=== PATIENT | female | born 1995 | race African-American/Black ===

== ENCOUNTER 2016-08-02 13:23 | Emergency (ER) | payer MEDICAID ==
[~2016-08-02] VITALS: Ht 157.5 cm; Wt 91.0 kg
[~2016-08-02 13:23] MED LIST: NAPR-576 PO; RANI150T PO; Z.0.BCPILL PO
[2016-08-02 13:25] VITALS: BP 133/63; PULSE 67; RESP 14; TEMP 98.1; O2SAT 98
--- NOTE | 2016-08-02 13:46 | PD ---
HPI Chief Complaint: Injury Time Seen by Provider: 13:37 Travel History International Travel<30 days: No Contact w/Intl Traveler<30days: No Traveled to known affect area: No History of Present Illness HPI 20-year-old female presents for evaluation of lateral right ankle and foot pain. She reports that yesterday evening she jumped up in order to reach the ceiling fan in order to turn on the ceiling fan. She reports that she landed awkwardly, inverting her right ankle. She heard a "pop" and since then she has had pain along the lateral aspect of the right ankle and foot. Pain is aching pain which is constant and worse with movement of the foot or ankle or with attempts at ambulation. She denies any other injuries and she has no other complaints at this time. [facility] Past Medical History Asthma: Yes Diabetes: No Diminished Hearing: No Respiratory: Yes (ASTHMA) Seizures: No ?: Not LMP: 07/25/2016 Menopausal: No Social History Alcohol Use: No Tobacco Use: No (quit one year ago) Substance Use: No (PER PATIENT) Allergies-Medications (Allergen,Severity, Reaction): Coded Allergies: No Known Allergies (Unverified , 08/02/16) Reported Meds & Prescriptions Reported Meds & Active Scripts Active No Active Prescriptions or Reported Medications Review of Systems Musculoskeletal: Positive: Limited ROM, Pain Skin: Positive Other (no open wounds) Physical Exam Narrative GENERAL: Well-developed well-nourished female in no acute distress SKIN: Warm and dry. CARDIOVASCULAR: Regular rate and rhythm. No murmur appreciated. RESPIRATORY: No accessory muscle use. Clear to auscultation. Breath sounds equal bilaterally. MUSCULOSKELETAL: No obvious deformities. There is some tenderness to palpation around the right ankle lateral malleolus. There is also some tenderness to palpation along the lateral aspect of the right foot. There is no obvious deformity. The patient has discomfort with dorsi and plantar flexion of the right ankle. The Achilles tendon is intact and nontender. Is no tenderness to palpation medial right ankle, calf. 2+ dorsalis pedis and posterior tibial pulses. NEUROLOGICAL: Awake and alert. No obvious cranial nerve deficits. Motor grossly within normal limits. Normal speech. Data Data Last Documented VS Vital Signs Date Time Temp Pulse Resp B/P Pulse Ox O2 Delivery O2 Flow Rate FiO2 08/02/16 13:25 98.1 67 14 133/63 98 Orders Ankle, Complete ([id number]) (08/02/16 ) Foot, Complete ([id number]) (08/02/16 ) Ice/Cold Pack (08/02/16 13:43) Crutches (08/02/16 15:09) Splint Or Brace Apply/Monitor (08/02/16 15:09) MDM Medical Decision Making Medical Screen Exam Complete: Yes Emergency Medical Condition: Yes Medical Record Reviewed: Yes Differential Diagnosis Lateral ankle sprain, fibular fracture, fifth metatarsal fracture, contusion, Lisfranc injury Narrative Course 20-year-old female who lateral right foot and ankle pain after inversion mechanism of injury last night. Ankle x-ray and foot x-ray revealed no acute fractures. She appears to have a lateral ankle sprain. She is being discharged with crutches and an Walt wrap. Diagnosis Primary Impression: Right ankle sprain Qualified Code: S93.401A - Sprain of right ankle, unspecified ligament, initial encounter Additional Instructions: Crutches as needed. Gradually return to normal activities. Take Tylenol or Motrin for discomfort. Follow-up with primary care physician in 2 weeks. Return for any emergent medical conditions. Med/Other Pt SpecificInfo: Orthopedic Instructions Scripts No Active Prescriptions or Reported Meds Disposition: 01 DISCHARGE HOME Condition: Stable Mariusz Yun Aug 02, 2016 13:46
--- NOTE | 2016-08-02 14:38 | RADRPT ---
EXAM DATE/TIME: 08/02/2016 14:15 [facility] COMPARISON: No previous studies available for comparison. INDICATIONS : Patient jumped up and landed on right ankle and heard a "pop". Patient complains of right ankle pain and swelling laterally. MEDICAL HISTORY : None. SURGICAL HISTORY : None. ENCOUNTER: Initial ACUITY: 2 days PAIN SCORE: 7/10 LOCATION: Right Ankle FINDINGS: Three view exam was performed of the right ankle. The bony structures are in normal alignment. No e vidence of fracture, dislocation. There is soft tissue swelling. The ankle mortise is intact. No ra diopaque foreign bodies are seen. Bony mineralization is normal. CONCLUSION: No acute fracture. Bernard Jain MD on August 02, 2016 at 14:36 Board Certified Radiologist. This report was verified electronically.
--- NOTE | 2016-08-02 14:39 | RADRPT ---
EXAM DATE/TIME: 08/02/2016 14:20 [facility] COMPARISON: No previous studies available for comparison. INDICATIONS : Patient jumped and landed on right foot and heard a "pop". Complains of right foot pain. MEDICAL HISTORY : None. SURGICAL HISTORY : None. ENCOUNTER: Initial ACUITY: 1 day PAIN SCORE: 7/10 LOCATION: Right Foot. FINDINGS: Three view examination of the right foot demonstrates soft tissue swelling without dislocation or fra cture. The tarsal bones appear intact. The interphalangeal and metatarsophalangeal joints are inta ct. The calcaneus is intact. Bony mineralization is normal. CONCLUSION: Soft tissue swelling. No acute fracture. Bernard Jain MD on August 02, 2016 at 14:37 Board Certified Radiologist. This report was verified electronically.
== END 2016-08-02 15:55 | disposition home or self-care (01) ==
LOC: NEPB 13:23
DX: S93.401A Sprain of unspecified ligament of right ankle, initial encounter (principal); X50.0XXA Overexertion from strenuous movement or load, initial encounter; Y93.89 Activity, other specified; Y92.9 Unspecified place or not applicable
CPT/HCPCS: 73610; 73630; 99283

== ENCOUNTER 2017-06-06 20:08 | Emergency (ER) | payer MEDICAID, OTHER ==
[2017-06-06 20:10] VITALS: BP 128/72; PULSE 91; RESP 16; TEMP 97.1; O2SAT 99
[2017-06-06] MEDS ORDERED: predniSONE 20 MG TAB PO ONE (21:00)
[2017-06-06] MEDS ORDERED: PRED-503 PO (21:01)
[2017-06-06] MEDS ORDERED: ALBU6.7H INH (21:01)
--- NOTE | 2017-06-06 21:11 | PD ---
HPI Chief Complaint: Respiratory Symptoms Time Seen by Provider: 20:51 Travel History International Travel<30 days: No Contact w/Intl Traveler<30days: No Traveled to known affect area: No History of Present Illness HPI 21-year-old black female presents to emergency department with a one-week history of runny nose, sore throat, cough, congestion, shortness of breath or wheezing. She states that she has a history of asthma and has been out of her medications. She admits to feeling subjectively febrile but has had no documented fever. No sputum production. No nausea vomiting. No abdominal pain or diarrhea. No dysuria or frequency. Symptoms are moderate. No alleviating factor. PFSH Past Medical History Asthma: Yes Diabetes: No Diminished Hearing: No Respiratory: Yes (ASTHMA) Seizures: No Influenza Vaccination: Yes ?: Not Menopausal: No Past Surgical History Surgical History: No Previous Surgery Social History Alcohol Use: No Tobacco Use: No (quit one year ago) Substance Use: No (PER PATIENT) Allergies-Medications (Allergen,Severity, Reaction): Coded Allergies: No Known Allergies (Unverified Adverse Reaction, Unknown, 06/06/17) Reported Meds & Prescriptions Reported Meds & Active Scripts Active Deltasone (Prednisone) 20 Mg Tab 20 Mg PO BID Proventil Hfa 6.7 GM Inh (Albuterol Sulfate) 90 Mcg/Act Aer 2 Puff INH Q4-6H PRN Review of Systems Except as stated in HPI: all other systems reviewed are Neg Physical Exam Narrative GENERAL: Well-developed, well-nourished in no acute distress. Nontoxic appearing. HEAD: Normocephalic, atraumatic. No pain on percussion of the sinuses. EYES: Pupils equal round and reactive. Extraocular motions intact. No scleral icterus. No injection or drainage. ENT: TMs clear without erythema. The external auditory canals clear. Nose: clear . Posterior pharynx is pink and moist. No tonsillar edema or exudate. Uvula midline. Airway patent. NECK: Trachea midline.Supple, nontender, moves head freely. No central bony tenderness or spasm. CARDIOVASCULAR: Regular rate and rhythm without murmurs, gallops, or rubs. RESPIRATORY: Clear to auscultation. Breath sounds equal bilaterally. No wheezes , rales, or rhonchi. GASTROINTESTINAL: Abdomen soft, non-tender, nondistended. No hepato-splenomegaly , or palpable masses. No guarding. EXTREMITIES: No clubbing, cyanosis, or edema. No joint tenderness, effusion, or edema noted. BACK: Nontender without deformity or crepitance. No flank tenderness. Data Data Last Documented VS Vital Signs Date Time Temp Pulse Resp B/P (MAP) Pulse Ox O2 Delivery O2 Flow Rate FiO2 06/06/17 20:10 97.1 91 16 128/72 (90) 99 Room Air Orders Orders Prednisone (Deltasone) (06/06/17 21:00) MDM Medical Decision Making Medical Screen Exam Complete: Yes Emergency Medical Condition: Yes Medical Record Reviewed: Yes Differential Diagnosis MDM: High Differential diagnoses: Pneumonia, bronchitis, URI, asthma, RAD, legionnaire's disease, SARS, ARDS, influenza, bronchiolitis, RSV,PE,CHF Narrative Course Patient given prednisone 40 mg by mouth. This is URI, asthma exacerbation Diagnosis Primary Impression: URI Additional Impression: asthma exacerbation Patient Instructions: General Instructions Additional Instructions: Rest. Increase fluids. Tylenol and Advil. Robitussin-DM. prednisone, and albuterol. Followup with your Dr. in one week. Return to the ER for any problems. Med/Other Pt SpecificInfo: Prescription(s) given Scripts Prednisone (Deltasone) 20 Mg Tab 20 MG PO BID, #10 TAB 0 Refills Prov: Uday Abdi MD 06/06/17 Albuterol 6.7 GM Inh (Proventil Hfa 6.7 GM Inh) 90 Mcg/Act Aer 2 PUFF INH Q4-6H Y for SHORTNESS OF BREATH, #1 INHALER 0 Refills Prov: Uday Abdi MD 06/06/17 Disposition: 01 DISCHARGE HOME Condition: Stable Jose Woodard Jun 06, 2017 21:11
== END 2017-06-06 21:42 | disposition home or self-care (01) ==
LOC: NEPD 20:08
DX: J45.901 Unspecified asthma with (acute) exacerbation (principal)
CPT/HCPCS: 99284; J7512

== ENCOUNTER 2017-06-15 17:03 | Emergency (ER) | payer SELFPAY ==
[~2017-06-15] VITALS: Ht 157.5 cm; Wt 104.5 kg
[~2017-06-15 17:03] MED LIST changes: +ALBU6.7H INH; -NAPR-576 PO; +PRED-503 PO; -RANI150T PO; -Z.0.BCPILL PO
[2017-06-15 17:04] VITALS: BP 155/82; PULSE 77; RESP 28; TEMP 97.7; O2SAT 99
[2017-06-15 17:51] LABS: AUTOMATED NEUTROPHIL # 13.5 TH/MM3 (1.8-7.7); BASOPHIL # 0.1 TH/MM3 (0-0.2); BASOPHIL % 0.3 % (0.0-2.0); EOSINOPHIL % 0.2 % (0.0-4.0); HEMATOCRIT 36.2 % (35.0-46.0); HEMOGLOBIN 12.3 GM/DL (11.6-15.3); LYMPH % 27.4 % (9.0-44.0); LYMPHOCYTE # 5.6 TH/MM3 (1.0-4.8); MEAN CELL VOLUME 88.6 FL (80.0-100.0); MEAN CORPUSCULAR HEMOGLOBIN 30.1 PG (27.0-34.0); MEAN PLATELET VOLUME 7.8 FL (7.0-11.0); MONO % 6.2 % (0.0-8.0); MONOCYTE # 1.3 TH/MM3 (0-0.9); NEUT % 65.9 % (16.0-70.0); PLATELET COUNT 513 TH/MM3 (150-450); RED BLOOD COUNT 4.09 MIL/MM3 (4.00-5.30); RED CELL DISTRIBUTION WIDTH 13.3 % (11.6-17.2); WHITE BLOOD COUNT 20.4 TH/MM3 (4.0-11.0)
[2017-06-15 17:55] LABS: BLOOD, URINE LARGE (NEG); GLUCOSE,URINE NEG (NEG); KETONE, URINE TRACE mg/dL (NEG); MUCUS URINE MANY /lpf (OCC); NITRITE,URINE NEG (NEG); SQUAMOUS EPITHELIAL CELL URINE 5 /hpf (0-5); URINE COLOR RED (YELLW/STRAW); URINE LEUKOCYTE ESTERASE MOD (NEG); WHITE BLOOD CELL CLUMPS FEW
[2017-06-15 17:56] LABS: BILIRUBIN, URINE NEG (NEG)
[2017-06-15 18:08] LABS: ALBUMIN 3.7 GM/DL (3.4-5.0); ALT (GPT) 15 U/L (9-42); AST (GOT) 8 U/L (16-38); BICARBONATE 26.2 MEQ/L (21.0-32.0); BLOOD UREA NITROGEN 13 MG/DL (7-18); CHLORIDE 104 MEQ/L (98-107); CREATININE 1.13 MG/DL (0.50-1.00); GLOMERULAR FILTRATION RATE 74 ML/MIN (>89); GLUCOSE,RANDOM 112 MG/DL (74-106); LIPASE 80 U/L (73-393); SODIUM (NA) 137 MEQ/L (136-145)
[2017-06-15 18:10] LABS: ALKALINE PHOSPHATASE 69 U/L (45-117); TOTAL BILIRUBIN ADULT 0.6 MG/DL (0.2-1.0)
[2017-06-15 19:01] LABS: LYMPHOCYTES 28 % (9-44); MONOCYTES 3 % (0-8); NEUTROPHIL # MANUAL DIFF 14.1 TH/MM3 (1.8-7.7); POLYS (SEG NEUTROPHILS) 69 % (16-70)
[2017-06-15] MEDS ORDERED: SODIUM CHLOR 0.9% 1000 ML INJ 1,000 ML IV ONE (19:15)
[2017-06-15] MEDS ORDERED: KETOROLAC TROMETHAMINE 30 MG/ML (IVP) VIAL IV PUSH ONE (19:15)
[2017-06-15] MEDS ORDERED: ONDANSETRON HCL 4 MG/2 ML VIAL IV PUSH ONE (19:15)
[2017-06-15 20:00] VITALS: BP 115/62; PULSE 62; RESP 16; O2SAT 100
[2017-06-15 20:30] VITALS: BP 114/63; PULSE 68; RESP 15; O2SAT 100
[2017-06-15] MEDS ORDERED: IOHEXOL 350 MG/ML 10 ML VIAL (for RAD DIAG) IVCONTRAST ONE (20:41)
[2017-06-15 21:00] VITALS: BP 109/73; PULSE 67; RESP 16; O2SAT 100
--- NOTE | 2017-06-15 21:46 | RADRPT ---
EXAM DATE/TIME: 06/15/2017 20:42 [facility] COMPARISON: CT ABDOMEN & PELVIS W CONTRAST, April 25, 2016, 22:15. INDICATIONS : Pelvic pain. IV CONTRAST: 100 cc Omnipaque 350 (iohexol) IV ORAL CONTRAST: No oral contrast ingested. RADIATION DOSE: 15.62 CTDIvol (mGy) MEDICAL HISTORY : None SURGICAL HISTORY : None. ENCOUNTER: Initial ACUITY: 1 day PAIN SCALE: 10/10 LOCATION: Bilateral pelvis TECHNIQUE: Volumetric scanning of the abdomen and pelvis was performed. Using automated exposure control and ad justment of the mA and/or kV according to patient size, radiation dose was kept as low as reasonably achievable to obtain optimal diagnostic quality images. DICOM format image data is available electro nically for review and comparison. FINDINGS: LOWER LUNGS: The visualized lower lungs are clear. LIVER: Homogeneous density without lesion. There is no dilation of the biliary tree. No calcified gallston es. SPLEEN: Normal size without lesion. PANCREAS: Within normal limits. KIDNEYS: Normal in size and shape. There is no mass, stone or hydronephrosis. ADRENAL GLANDS: Within normal limits. VASCULAR: There is no aortic aneurysm. BOWEL/MESENTERY: No dilated loops of small or large bowel. ABDOMINAL WALL: Within normal limits. RETROPERITONEUM: There is no lymphadenopathy. BLADDER: No wall thickening or mass. REPRODUCTIVE: Anteverted uterus. No adnexal masses seen. INGUINAL: There is no lymphadenopathy or hernia. MUSCULOSKELETAL: Within normal limits for patient age. CONCLUSION: Negative CT abdomen/pelvis with contrast. Daniel Amaya MD on June 15, 2017 at 21:41 Board Certified Radiologist. This report was verified electronically.
[2017-06-15] MEDS ORDERED: NAPR500T2 PO (22:05)
[2017-06-15] MEDS ORDERED: CIPR-9 PO (22:05)
--- NOTE | 2017-06-15 22:06 | PD ---
HPI Chief Complaint: Abdominal Pain Time Seen by Provider: 19:09 Travel History International Travel<30 days: No Contact w/Intl Traveler<30days: No Traveled to known affect area: No History of Present Illness HPI Patient is a 21 year old female who comes in complaining of lower abdominal cramping with nausea and vomiting. She is currently on her menstrual period and says she has had symptoms like this before during her period. She has not taken anything for her symptoms. She denies fever or chills. She denies lightheadedness or palpitations. PFSH Past Medical History Asthma: Yes Diabetes: No Diminished Hearing: No Respiratory: Yes (asthma) Seizures: No ?: Not Menopausal: No Social History Alcohol Use: No Tobacco Use: No (quit one year ago) Substance Use: No (PER PATIENT) Allergies-Medications (Allergen,Severity, Reaction): Coded Allergies: No Known Allergies (Unverified Adverse Reaction, Unknown, 06/06/17) Reported Meds & Prescriptions Reported Meds & Active Scripts Active Deltasone (Prednisone) 20 Mg Tab 20 Mg PO BID Proventil Hfa 6.7 GM Inh (Albuterol Sulfate) 90 Mcg/Act Aer 2 Puff INH Q4-6H PRN Review of Systems Except as stated in HPI: all other systems reviewed are Neg General / Constitutional: No: Fever, Chills HENT: No: Headaches, Lightheadedness Cardiovascular: No: Chest Pain or Discomfort Respiratory: No: Shortness of Breath Gastrointestinal: Positive: Nausea, Vomiting Genitourinary: Positive: Vaginal Bleeding Musculoskeletal: No: Myalgias, Edema Skin: No Rash, No Change in Pigmentation Neurologic: No: Weakness, Dizziness Physical Exam Narrative GENERAL: Awake and alert, in no acute distress. SKIN: Focused skin assessment warm/dry. HEAD: Atraumatic. Normocephalic. EYES: Pupils equal and round. No scleral icterus. EOMI. ENT: Mucous membranes pink and moist. NECK: Trachea midline. No JVD. CARDIOVASCULAR: Regular rate and rhythm. No murmur appreciated. RESPIRATORY: No accessory muscle use. Clear to auscultation. Breath sounds equal bilaterally. GASTROINTESTINAL: Abdomen soft, nondistended. Tender across the lower abdomen. No rebound or guarding. Mild right CVA tenderness. MUSCULOSKELETAL: No obvious deformities. No clubbing. No cyanosis. No edema. NEUROLOGICAL: Awake and alert. No obvious cranial nerve deficits. Motor grossly within normal limits. Normal speech. PSYCHIATRIC: Appropriate mood and affect; insight and judgment normal. Data Data Last Documented VS Vital Signs Date Time Temp Pulse Resp B/P (MAP) Pulse Ox O2 Delivery O2 Flow Rate FiO2 06/15/17 21:00 67 16 109/73 (85) 100 Room Air 06/15/17 17:04 97.7 Orders Orders Complete Blood Count With Diff (06/15/17 17:10) Comprehensive Metabolic Panel (06/15/17 17:10) Lipase (06/15/17 17:10) Urinalysis - C+S If Indicated (06/15/17 17:10) Ed Urine Pregnancytest Poc (06/15/17 17:10) Urine Culture (06/15/17 17:30) Ct Abd/Pel W Iv Contrast(Rout) (06/15/17 ) Ketorolac Inj (Toradol Inj) (06/15/17 19:15) Sodium Chlor 0.9% 1000 Ml Inj (Ns 1000 M (06/15/17 19:15) Iv Access Insert/Monitor (06/15/17 19:15) Ondansetron Inj (Zofran Inj) (06/15/17 19:15) Iohexol 350 Inj (Omnipaque 350 Inj) (06/15/17 20:41) Labs Laboratory Tests Test 06/15/17 17:25 06/15/17 17:30 White Blood Count 20.4 TH/MM3 Red Blood Count 4.09 MIL/MM3 Hemoglobin 12.3 GM/DL Hematocrit 36.2 % Mean Corpuscular Volume 88.6 FL Mean Corpuscular Hemoglobin 30.1 PG Mean Corpuscular Hemoglobin Concent 34.0 % Red Cell Distribution Width 13.3 % Platelet Count 513 TH/MM3 Mean Platelet Volume 7.8 FL Neutrophils (%) (Auto) 65.9 % Lymphocytes (%) (Auto) 27.4 % Monocytes (%) (Auto) 6.2 % Eosinophils (%) (Auto) 0.2 % Basophils (%) (Auto) 0.3 % Neutrophils # (Auto) 13.5 TH/MM3 Lymphocytes # (Auto) 5.6 TH/MM3 Monocytes # (Auto) 1.3 TH/MM3 Eosinophils # (Auto) 0.0 TH/MM3 Basophils # (Auto) 0.1 TH/MM3 CBC Comment AUTO DIFF Differential Total Cells Counted 100 Neutrophils % (Manual) 69 % Lymphocytes % 28 % Monocytes % 3 % Neutrophils # (Manual) 14.1 TH/MM3 Differential Comment FINAL DIFF MANUAL Platelet Estimate HIGH Platelet Morphology Comment NORMAL Blood Urea Nitrogen 13 MG/DL Creatinine 1.13 MG/DL Random Glucose 112 MG/DL Total Protein 8.0 GM/DL Albumin 3.7 GM/DL Calcium Level 9.0 MG/DL Alkaline Phosphatase 69 U/L Aspartate Amino Transf (AST/SGOT) 8 U/L Alanine Aminotransferase (ALT/SGPT) 15 U/L Total Bilirubin 0.6 MG/DL Sodium Level 137 MEQ/L Potassium Level 3.4 MEQ/L Chloride Level 104 MEQ/L Carbon Dioxide Level 26.2 MEQ/L Anion Gap 7 MEQ/L Estimat Glomerular Filtration Rate 74 ML/MIN Lipase 80 U/L Urine Color RED Urine Turbidity HAZY Urine pH 6.0 Urine Specific [place] 1.028 Urine Protein 100 mg/dL Urine Glucose (UA) NEG mg/dL Urine Ketones TRACE mg/dL Urine Occult Blood LARGE Urine Nitrite NEG Urine Bilirubin NEG Urine Urobilinogen 4.0 MG/DL Urine Leukocyte Esterase MOD Urine RBC /hpf Urine WBC 130 /hpf Urine WBC Clumps FEW Urine Squamous Epithelial Cells 5 /hpf Urine Mucus MANY /lpf Urine Yeast (Budding) FEW Microscopic Urinalysis Comment CULTURE INDICATED MDM Medical Decision Making Medical Screen Exam Complete: Yes Emergency Medical Condition: Yes Medical Record Reviewed: Yes Differential Diagnosis UTI versus renal stone versus ovarian cyst versus menstrual cramps Narrative Course Patient is a 21-year-old female comes in complaining of abdominal pain with nausea vomiting, vaginal bleeding. Exam shows lower abdominal tenderness on palpation. IV established, labs sent. Labs show no acute abnormalities other than an elevated white blood cell count. Urinalysis is positive for UTI. CT abdomen and pelvis shows no acute abnormalities. Last 24 hours Impressions Abdomen/Pelvis CT 06/15/17 0000 Signed Impressions: Service Date/Time: Thursday, June 15, 2017 20:42 - CONCLUSION: Negative CT abdomen/pelvis with contrast. Daniel Amaya MD Patient given IV fluids, Toradol, Zofran. She reports feeling much better. She will be discharged with a prescription for Cipro as well as naproxen. Advised follow-up with a primary doctor. Advised to return to the ED as needed for any worsening symptoms. Diagnosis Primary Impression: Dysmenorrhea Additional Impression: UTI (urinary tract infection) Qualified Codes: N30.01 - Acute cystitis with hematuria Patient Instructions: General Instructions, Urinary Tract Infection in Women ( ED) Additional Instructions: Drink plenty of fluids. Take all of your antibiotic. Take naproxen as needed for pain. Follow-up with a primary doctor. Return to the ED as needed for any worsening symptoms. Scripts Naproxen (Naproxen) 500 Mg Tab 500 MG PO BID, #20 TAB 0 Refills Prov: Shannan Rueda MD 06/15/17 Ciprofloxacin (Cipro) 500 Mg Tab 500 MG PO BID for Infection for 10 Days, #20 TAB 0 Refills Prov: Shannan Rueda MD 06/15/17 Disposition: 01 DISCHARGE HOME Condition: Stable Shannan Rueda MD Jun 15, 2017 22:06
[2017-06-15 22:09] VITALS: BP 137/78
== END 2017-06-15 22:18 | disposition home or self-care (01) ==
LOC: NEPD 17:03
DX: N94.6 Dysmenorrhea, unspecified (principal); N30.01 Acute cystitis with hematuria; B96.89 Other specified bacterial agents as the cause of diseases classified elsewhere; J45.909 Unspecified asthma, uncomplicated; Z87.891 Personal history of nicotine dependence
CPT/HCPCS: 74177; 80053; 81001; 83690; 84703; 85007; 85027; 87086; 96361; 96374; 96375; 99285; J1885; J2405; J7030; Q9967